=== PATIENT | male | born 1950 | race African-American/Black ===

== ENCOUNTER 2020-09-06 11:35 | Inpatient (IN) | payer OTHER ==
[~2020-09-06] VITALS: Ht 177.8 cm; Wt 54.0 kg
[2020-09-06] MEDS ORDERED: FLEET ENEMA(ADULT) 135 ML PR ONE (13:00)
[2020-09-06 13:47] LABS: Basophils # (auto) 0 10 ^3/uL (0-0.2); Eosinophils # (auto) 0 10 ^3/uL (0-0.8); Lymphocytes # (auto) 0.2 10 ^3/uL (0.4-5.4); Monocytes # (auto) 0.3 10 ^3/uL (0-1.3); Red Cell Distribution Width 18.4 % (11.8-14.3)
[2020-09-06 13:48] LABS: Basophils % (auto) 0.4 % (0.0-2.0); Eosinophils % (auto) 0.2 % (0.0-7.0); Hematocrit 38.4 % (41.0-53.0); Hemoglobin 12.6 g/dL (13.5-17.5); Lymphocytes % (auto) 1.6 % (10.0-50.0); Mean Corpuscular Hemoglobin 25.3 pg (28.0-32.0); Mean Corpuscular Hgb Conc. 32.8 g/dL (32.0-36.0); Mean Corpuscular Volume 77.1 fL (80.0-100.0); Monocytes % (auto) 3.2 % (0.0-12.0); Neutrophils # (auto) 9.1 10 ^3/uL (1.6-8.6); Neutrophils % (auto) 94.6 % (37.0-80.0); Nucleated Red Blood Cells % 0.1 %; Platelet Count (auto) 209 10^3/uL (140-450); Red Blood Cells 4.98 10^6/uL (4.5-5.90); White Blood Cell 9.7 10^3/uL (4.4-10.8)
[2020-09-06 14:01] LABS: Albumin 3.7 g/dL (3.4-5.0); Calcium 9.2 mg/dL (8.5-10.1); Magnesium 2.5 mg/dL (1.6-2.6)
[2020-09-06 14:05] LABS: BUN/Creatinine Ratio 11.8; Bilirubin, Total 0.7 mg/dL (0.2-1.0); Total Protein 8.2 g/dL (6.4-8.2)
[2020-09-06] MEDS ORDERED: SODIUM CHLORIDE 0.9% 1,000 ML IV ONE (15:15)
[2020-09-06] MEDS ORDERED: cefTRIAXone 1GM/50ML D5W 50 ML IV ONE (15:15)
[2020-09-06] MEDS ORDERED: MORPHINE SULF INJ 2 MG/ML SYRINGE 1ML IV PRN (17:30)
[2020-09-06] MEDS ORDERED: NITROGLYCERIN 0.4 MG SL TAB SL PRN (17:30)
[2020-09-06] MEDS: SODIUM CHLORIDE 0.9% 1,000 ML IV SCH (17:30)
[2020-09-06] MEDS ORDERED: HYDROcodone-ACET 5/325MG TAB PO PRN (17:30)
[2020-09-06] MEDS ORDERED: ACETAMINOPHEN 500 MG TAB PO PRN (17:30)
[2020-09-06 20:17] LABS: Cholesterol 138 mg/dL (< 200)
[2020-09-06 20:20] LABS: HDL Cholesterol 52 mg/dL (40-59); LDL Cholesterol 70 mg/dL (< 100); Triglycerides 105 mg/dL (< 150)
[2020-09-06 22:00] VITALS: BP 180/93
[2020-09-06] MEDS: DOCUSATE SOD 100 MG CAP PO SCH (22:33)
[2020-09-07] VITALS (7 sets, daily range): BP systolic 126–181; BP diastolic 71–89
[2020-09-07] MEDS: SODIUM CHLORIDE 0.9% 1,000 ML IV SCH (04:29)
[2020-09-07] MEDS: DOCUSATE SOD 100 MG CAP PO SCH ×2 (10:37→19:22)
[2020-09-07] MEDS: AZITHROMYCIN 250 MG TAB PO SCH (10:37)
[2020-09-07] MEDS: LACTULOSE 20Gm/30ML SOLN PO SCH (10:37)
[2020-09-07] MEDS: NICOTINE 21MG/24 HR TOPICAL PATCH TD SCH (10:38)
[2020-09-07] MEDS ORDERED: cloNIDine HCL 0.1 MG TAB PO PRN (12:15)
[2020-09-07] MEDS ORDERED: GOLYTELY 4L KIT PO ONE (12:30)
[2020-09-08 05:00] VITALS: BP 163/76
[2020-09-08 09:00] VITALS: BP 191/88
[2020-09-08] MEDS: DOCUSATE SOD 100 MG CAP PO SCH (09:57)
[2020-09-08] MEDS: LACTULOSE 20Gm/30ML SOLN PO SCH (09:57)
[2020-09-08] MEDS: AZITHROMYCIN 250 MG TAB PO SCH (09:57)
[2020-09-08] MEDS: NICOTINE 21MG/24 HR TOPICAL PATCH TD SCH (09:58)
[2020-09-08 13:00] VITALS: BP 111/69
[2020-09-08 13:08] VITALS: BP 99/66
== END 2020-09-08 16:35 | disposition home or self-care (01) | DRG 392 ==
LOC: ER 11:35 → EDBD 11:35 → TELE 17:22 → WEST WING 21:51 → TELE-WESTW 22:19 → WEST WING 22:33
PROVIDERS: ADMIT Nurse Practitioner Acute Care; ATTEND Family Medicine
DX: K59.00 Constipation, unspecified (principal); K80.10 Calculus of gallbladder with chronic cholecystitis without obstruction; R64 Cachexia; Z20.822 Contact with and (suspected) exposure to COVID-19; D50.8 Other iron deficiency anemias; I10 Essential (primary) hypertension; F17.210 Nicotine dependence, cigarettes, uncomplicated; Z91.012 Allergy to eggs
CPT/HCPCS: 36415; 71045; 74176; 80053; 80061; 83735; 84443; 85025; 87426; 96361; 96365; G0378; J0696